=== PATIENT | female | born 1965 | race Caucasian/White ===

== ENCOUNTER 2019-08-22 11:02 | Emergency (ER) | payer BC ==
[~2019-08-22] VITALS: Ht 160 cm; Wt 63.6 kg
[2019-08-22 11:06] VITALS: Ht 160 cm; Wt 63.6 kg
[2019-08-22] MEDS ORDERED: AUGMENTIN 875-11 TAB PO (12:42)
[2019-08-22 13:12] VITALS: BP 147/96
== END 2019-08-22 13:24 | disposition home or self-care (01) ==
LOC: D.ER 11:02
DX: S41.152A Open bite of left upper arm, initial encounter (principal); W54.0XXA Bitten by dog, initial encounter; Y93.9 Activity, unspecified; Y92.9 Unspecified place or not applicable; S51.812A Laceration without foreign body of left forearm, initial encounter